=== PATIENT | male | born 1970 | race Caucasian/White ===

== ENCOUNTER → 2018-11-15 16:05 | Outpatient (CLI) | payer MEDICARE ==
[~2018-11-15 16:05] MED LIST: LEXAPRO10 MG PO
[2018-11-19 18:14] VITALS: BMI 30.8
== END | disposition home or self-care (01) ==
LOC: D.CT 16:05
DX: J98.59 Other diseases of mediastinum, not elsewhere classified (principal)

== ENCOUNTER 2018-11-19 18:10 | Emergency (ER) | payer MEDICARE ==
[~2018-11-19] VITALS: Ht 188 cm; Wt 109.1 kg
[2018-11-19 18:14] VITALS: Ht 188 cm; Wt 109.1 kg
[2018-11-19] MEDS ORDERED: LEXAPRO10 MG PO (18:16)
[2018-11-19 19:02] LABS: BASOPHILS 0.3 % (0-2); EOSINOPHILS 2.1 % (0-7); HEMATOCRIT 45.3 % (42.0-54.0); HEMOGLOBIN 15.1 g/dL (13.5-17.5); IMMATURE GRANULOCYTES 0.2 % (0-5); LYMPHOCYTES 19.7 % (15-50); MCH 31.9 pg (26.0-34.0); MCHC 33.3 g/dL (31.0-37.0); MCV 95.6 fL (80.0-100.0); MEAN PLATELET VOLUME 10.9 fL (7.4-10.4); MONOCYTES 3.2 % (2-11); NEUTROPHILS 74.5 % (40-80); PLATELET COUNT 235 10x3/uL (130-400); RBC 4.74 10x6/uL (4.20-6.10); RDW 13.1 % (11.5-14.5); WBC 9.6 10x3/uL (4.8-10.8)
[2018-11-19 19:23] LABS: ALBUMIN 3.2 g/dL (3.4-5.0); ALKALINE PHOSPHATASE 44 U/L (46-116); ALT (SGPT) 19 U/L (10-68); CALC OSMOLALITY 275 mosm/kg (275-300); CALCIUM 8.3 mg/dL (8.5-10.1); CARBON DIOXIDE 28.3 mmol/L (21.0-32.0); CHLORIDE - SERUM 104 mmol/L (98-107); GLUCOSE 81 mg/dL (74-106); POTASSIUM - SERUM 4.2 mmol/L (3.5-5.1); SODIUM 139 mmol/L (136-145); UREA NITROGEN 9 mg/dL (7-18); eGFR NON AFRICAN AMERICAN 84 mL/min (90-120)
[2018-11-19 19:31] LABS: CKMB 0.6 U/L (0.0-3.6); CREATINE KINASE 64 UL (21-232)
[2018-11-19 19:41] LABS: TROPONIN-I < 0.017 ng/mL (0.000-0.060)
[2018-11-20 02:14] VITALS: BP 143/92
== END 2018-11-19 22:18 | disposition home or self-care (01) ==
LOC: D.ER 18:10
PROVIDERS: Family Medicine
DX: I71.4 Abdominal aortic aneurysm, without rupture (principal); F17.200 Nicotine dependence, unspecified, uncomplicated